=== PATIENT | female | born 1970 | race Caucasian/White ===

== ENCOUNTER → 2022-01-05 | Outpatient (CLI) | payer BC | LOC: MAMO 08-29 10:00 | DX: Z12.31 Encounter for screening mammogram for malignant neoplasm of breast (principal) | CPT/HCPCS: 77063; 77067 ==

== ENCOUNTER → 2022-02-26 | Outpatient (CLI) | payer BC | LOC: KOH-I 13:36 | DX: M79.672 Pain in left foot (principal); S92.252D Displaced fracture of navicular [scaphoid] of left foot, subsequent encounter for fracture with routine healing | CPT/HCPCS: 73630 ==